=== PATIENT | male | born 1975 | race Two or more races ===

== ENCOUNTER → 2024-07-25 | Emergency (ER) | payer OTHER ==
[~2024-07-25] VITALS: Ht 167.6 cm; Wt 88.5 kg
[~2024-07-25] MED LIST: MECLIZINE HCL 25 MG TABLET PO ONE; VERTICALM25 MG PO; ZESTRIL10 M1
[2024-07-25 13:38] VITALS: BP 170/90; O2SAT 100
== END | disposition home or self-care (01) ==
LOC: ER 13:15
DX: R42 Dizziness and giddiness (principal); R53.81 Other malaise